=== PATIENT | female | born 1985 | race Asian ===

== ENCOUNTER 2018-04-22 07:23 | Emergency (ER) | payer OTHER ==
[~2018-04-22] VITALS: Ht 152.4 cm; Wt 55.3 kg
[~2018-04-22 07:23] MED LIST: DOCU-131 PO; IBUP-1223 PO; OXYC-302 PO; PREN1TAB60 PO
[2018-04-22 07:25] VITALS: BP 130/81
[2018-04-22 08:22] LABS: BASOPHILS # (AUTO) 0.04 x10^3/uL (0-0.1); BASOPHILS % (AUTO) 0 % (0-1); EOSINOPHILS # (AUTO) 0.13 x10^3/uL (0-0.4); EOSINOPHILS % (AUTO) 1 % (1-7); LYMPHOCYTES # (AUTO) 2.28 x10^3/uL (1-3.4); LYMPHOCYTES % (AUTO) 15 % (22-44); MD NO; MEAN CORPUSCULAR HEMOGLOBIN 31.1 pg (27.0-34.8); MEAN CORPUSCULAR VOLUME 91.3 fL (80-100); MEAN PLATELET VOLUME 8.2 fL (7.4-10.4); MONOCYTES # (AUTO) 0.84 x10^3/uL (0.2-0.8); MONOCYTES % (AUTO) 6 % (2-9); NEUTROPHILS # (AUTO) 11.87 x10^3/uL (1.8-6.8); NEUTROPHILS % (AUTO) 78 % (42-75); PLATELET COUNT 232 x10^3/uL (130-400); RED BLOOD COUNT 3.92 x10^6/uL (3.82-5.3)
[2018-04-22 08:22] LABS: CULTURE INDICATED? YES; MICROSCOPIC INDICATED
[2018-04-22 08:27] LABS: ALBUMIN 3.4 g/dL (3.4-5.0); ANION GAP 8 mmol/L (5-15); CALCIUM 8.4 mg/dL (8.5-10.1); CHLORIDE 106 mmol/L (98-107); CREATININE 0.56 mg/dL (0.55-1.02)
== END 2018-04-22 09:49 | disposition home or self-care (01) ==
LOC: ED 08:17
DX: J00 Acute nasopharyngitis [common cold] (principal)
CPT/HCPCS: 36415; 71046; 80048; 81001; 82040; 84702; 85025; 87086; 99285

== ENCOUNTER 2018-11-27 05:59 | Inpatient (IN) | payer OTHER ==
[~2018-11-27] VITALS: Ht 154.9 cm; Wt 60.4 kg
[2018-11-27 06:00] VITALS: BP 123/73
[2018-11-27] MEDS: OXYTOCIN 30U/ 0.9% NaCL 500ML 500 ML IV SCH ×4 (06:01→17:42)
[2018-11-27 06:29] LABS: BASOPHILS # (AUTO) 0.03 x10^3/uL (0-0.1); BASOPHILS % (AUTO) 0 % (0-1); EOSINOPHILS % (AUTO) 1 % (1-7); LYMPHOCYTES # (AUTO) 1.87 x10^3/uL (1-3.4); LYMPHOCYTES % (AUTO) 21 % (22-44); MD NO; MEAN CORPUSCULAR HEMOGLOBIN 32.1 pg (27.0-34.8); MEAN CORPUSCULAR HGB CONC 33.7 g/dL (32.4-35.8); MEAN CORPUSCULAR VOLUME 95.5 fL (80-100); MEAN PLATELET VOLUME 9.1 fL (7.4-10.4); MONOCYTES # (AUTO) 0.81 x10^3/uL (0.2-0.8); MONOCYTES % (AUTO) 9 % (2-9); NEUTROPHILS # (AUTO) 6.05 x10^3/uL (1.8-6.8); NEUTROPHILS % (AUTO) 68 % (42-75); PLATELET COUNT 217 x10^3/uL (130-400); RED CELL DISTRIBUTION WIDTH 13.7 % (9.6-15.2)
[2018-11-27] MEDS ORDERED: LACTATED RINGERS 1,000 ML IVBOLUS ONE (06:30)
[2018-11-27] MEDS ORDERED: METOCLOPRAMIDE 5 MG/ML, 2ML IV ONE (06:30)
[2018-11-27] MEDS ORDERED: SODIUM CITRATE/CITRIC ACID 30 ML UDC PO ONE (06:30)
[2018-11-27] MEDS ORDERED: NEWBORN KIT ONE (06:34)
[2018-11-27] MEDS ORDERED: SODIUM CITRATE/CITRIC ACID 30 ML UDC ONE (06:34)
[2018-11-27] MEDS ORDERED: METOCLOPRAMIDE 5 MG/ML, 2ML ONE (06:34)
[2018-11-27] MEDS ORDERED: CEFAZOLIN 1,000 MG ONE (07:11)
[2018-11-27] MEDS ORDERED: OXYTOCIN 10 UNITS/ML, 1ML ONE (07:11)
[2018-11-27] MEDS ORDERED: HYDROmorphone 2 MG/ML, 1ML ONE (07:11)
[2018-11-27] MEDS ORDERED: ONDANSETRON 2MG/ML, 2ML ONE (07:11)
[2018-11-27] MEDS ORDERED: FENTANYL PF 100 MCG/2ML ONE (07:12)
[2018-11-27] MEDS ORDERED: SODIUM CHLORIDE 0.9% PF 10ML ONE ×2 (07:12)
[2018-11-27] MEDS: LACTATED RINGERS 1,000 ML IV SCH ×11 (07:33→23:42)
[2018-11-27] MEDS ORDERED: DIPH,PERTUSS(ACELL),TET VAC/PF NC IM-VACC PRN (08:00)
[2018-11-27] MEDS ORDERED: morphine SULFATE 10 MG/ML, 1ML IVPush PRN (08:00)
[2018-11-27] MEDS ORDERED: CALCIUM CARBONATE 500 MG TAB.CHEW PO PRN (08:00)
[2018-11-27] MEDS ORDERED: ONDANSETRON 2MG/ML, 2ML IV PRN (08:00)
[2018-11-27] MEDS ORDERED: OXYcodone/APAP 5/325MG TABLET PO PRN (08:00)
[2018-11-27] MEDS ORDERED: RHOGAM FROM BLOOD BANK 1 NOTE EA IM/IV ONE (08:00)
[2018-11-27] MEDS ORDERED: MISOPROSTOL 200 MCG TABLET PR PRN (08:00)
[2018-11-27] MEDS ORDERED: MEASLES,MUMPS&RUBELLA VACC/PF 0.5 ML SQ-VACC PRN (08:00)
[2018-11-27] MEDS ORDERED: EPHEDRINE 50 MG/ML, 1ML ONE (08:30)
[2018-11-27] MEDS ORDERED: OXYTOCIN 30U/ 0.9% NaCL 500ML 500 ML ONE (09:00)
[2018-11-27] MEDS: PRENATAL VIT/IRON/FA 1 EACH TABLET PO SCH (09:00)
[2018-11-27] MEDS ORDERED: OXYcodone 5 MG/5 ML ORAL.SOL UDC ONE (09:40)
[2018-11-27 09:50] VITALS: BP 124/68
[2018-11-27] MEDS ORDERED: OXYcodone 5 MG/5 ML ORAL.SOL UDC PO PRN (10:00)
[2018-11-27] MEDS: KETOROLAC 30 MG/1 ML IV SCH ×2 (12:15→19:07)
[2018-11-27 13:27] VITALS: BP 111/69
[2018-11-27 17:30] VITALS: BP 120/76
[2018-11-27 19:45] VITALS: BP 113/72
[2018-11-27] MEDS: DOCUSATE 100 MG CAPSULE PO PRN (21:10)
[2018-11-27] MEDS: SIMETHICONE 80 MG CHEW TAB PO PRN (21:10)
[2018-11-27] MEDS: OXYcodone IR 5MG TABLET PO PRN (22:27)
[2018-11-28] MEDS: KETOROLAC 30 MG/1 ML IV SCH ×4 (01:05→20:26)
[2018-11-28 02:00] VITALS: BP 108/68
[2018-11-28] MEDS: OXYTOCIN 30U/ 0.9% NaCL 500ML 500 ML IV SCH ×4 (02:01→23:42)
[2018-11-28] MEDS: LACTATED RINGERS 1,000 ML IV SCH ×6 (03:42→23:42)
[2018-11-28 05:00] VITALS: BP 113/74
[2018-11-28] MEDS: OXYcodone IR 5MG TABLET PO PRN ×2 (06:07→18:45)
[2018-11-28 07:00] LABS: BASOPHILS # (AUTO) 0.04 x10^3/uL (0-0.1); BASOPHILS % (AUTO) 0 % (0-1); EOSINOPHILS # (AUTO) 0.12 x10^3/uL (0-0.4); EOSINOPHILS % (AUTO) 1 % (1-7); LYMPHOCYTES # (AUTO) 1.71 x10^3/uL (1-3.4); LYMPHOCYTES % (AUTO) 13 % (22-44); MD NO; MEAN CORPUSCULAR HEMOGLOBIN 31.4 pg (27.0-34.8); MEAN CORPUSCULAR HGB CONC 32.8 g/dL (32.4-35.8); MEAN CORPUSCULAR VOLUME 95.9 fL (80-100); MEAN PLATELET VOLUME 8.5 fL (7.4-10.4); MONOCYTES % (AUTO) 6 % (2-9); NEUTROPHILS % (AUTO) 79 % (42-75); PLATELET COUNT 210 x10^3/uL (130-400); RED BLOOD COUNT 3.57 x10^6/uL (3.82-5.3); RED CELL DISTRIBUTION WIDTH 13.8 % (9.6-15.2)
[2018-11-28] MEDS: PRENATAL VIT/IRON/FA 1 EACH TABLET PO SCH (07:50)
[2018-11-28] MEDS: DOCUSATE 100 MG CAPSULE PO PRN ×2 (07:50→20:26)
[2018-11-28 07:52] VITALS: BP 113/77
[2018-11-28 19:30] VITALS: BP 122/73
[2018-11-29] MEDS: SIMETHICONE 80 MG CHEW TAB PO PRN (03:29)
[2018-11-29] MEDS: KETOROLAC 30 MG/1 ML IV SCH (03:29)
[2018-11-29 07:30] VITALS: BP 122/80
[2018-11-29] MEDS: LACTATED RINGERS 1,000 ML IV SCH ×3 (07:42→23:42)
[2018-11-29] MEDS: PRENATAL VIT/IRON/FA 1 EACH TABLET PO SCH (07:47)
[2018-11-29] MEDS: OXYcodone IR 5MG TABLET PO PRN ×3 (07:47→19:43)
[2018-11-29] MEDS: DOCUSATE 100 MG CAPSULE PO PRN ×2 (07:47→19:44)
[2018-11-29] MEDS: OXYTOCIN 30U/ 0.9% NaCL 500ML 500 ML IV SCH ×2 (09:42→19:42)
[2018-11-29] MEDS: IBUPROFEN 600 MG TABLET PO PRN ×2 (13:48→19:44)
[2018-11-29 21:00] VITALS: BP 127/89
[2018-11-30] MEDS: IBUPROFEN 600 MG TABLET PO PRN ×2 (01:47→09:02)
[2018-11-30] MEDS: OXYcodone IR 5MG TABLET PO PRN ×2 (01:47→09:02)
[2018-11-30] MEDS: OXYTOCIN 30U/ 0.9% NaCL 500ML 500 ML IV SCH (05:42)
[2018-11-30] MEDS ORDERED: OXYC-302 PO (07:30)
[2018-11-30] MEDS ORDERED: IBUP-1222 PO (07:30)
[2018-11-30] MEDS: LACTATED RINGERS 1,000 ML IV SCH (07:42)
[2018-11-30 08:00] VITALS: BP 119/80
[2018-11-30] MEDS: DOCUSATE 100 MG CAPSULE PO PRN (09:02)
[2018-11-30] MEDS: PRENATAL VIT/IRON/FA 1 EACH TABLET PO SCH (09:02)
== END 2018-11-30 12:54 | disposition home or self-care (01) | DRG 785 ==
LOC: LDIP 05:59 → 2NW 11:33
PROVIDERS: ADMIT Obstetrics & Gynecology Gynecology; ATTEND Obstetrics & Gynecology Gynecology
PROC: 10D00Z1 Extraction of Products of Conception, Low, Open Approach (ICD-10-PCS; principal; 2018-11-27)
PROC: 0UB70ZZ Excision of Bilateral Fallopian Tubes, Open Approach (ICD-10-PCS; 2018-11-27)
DX: O34.211 Maternal care for low transverse scar from previous cesarean delivery (principal); Z3A.39 39 weeks gestation of pregnancy; Z37.0 Single live birth; Z30.2 Encounter for sterilization; Z82.3 Family history of stroke; Z82.49 Family history of ischemic heart disease and other diseases of the circulatory system; Z83.3 Family history of diabetes mellitus
CPT/HCPCS: 36415; 82803; 85025; 86850; 86900; 88302; G0378; J0690; J1170; J1885; J2405; J3010; J2590; J2765; J7120

== ENCOUNTER 2018-12-08 13:20 | Inpatient (IN) | payer OTHER ==
[~2018-12-08] VITALS: Ht 154.9 cm; Wt 60.5 kg
[~2018-12-08 13:20] MED LIST changes: +IBUP-1222 PO
[2018-12-08] MEDS ORDERED: LABETALOL 5MG/ML, 20ML IVPush STA (13:43)
[2018-12-08 13:50] VITALS: BP 188/109
[2018-12-08 13:50] LABS: MICROSCOPIC NOT IND
[2018-12-08] MEDS ORDERED: LACTATED RINGERS 1,000 ML IV SCH (14:00)
[2018-12-08 14:01] LABS: CREATININE,URINE RANDOM 46.1 mg/dL
[2018-12-08 14:07] LABS: BASOPHILS # (AUTO) 0.05 x10^3/uL (0-0.1); BASOPHILS % (AUTO) 1 % (0-1); EOSINOPHILS # (AUTO) 0.19 x10^3/uL (0-0.4); EOSINOPHILS % (AUTO) 2 % (1-7); LYMPHOCYTES # (AUTO) 2.17 x10^3/uL (1-3.4); LYMPHOCYTES % (AUTO) 25 % (22-44); MD NO; MEAN CORPUSCULAR HEMOGLOBIN 31.2 pg (27.0-34.8); MEAN CORPUSCULAR VOLUME 94.8 fL (80-100); MEAN PLATELET VOLUME 7.7 fL (7.4-10.4); MONOCYTES # (AUTO) 0.64 x10^3/uL (0.2-0.8); MONOCYTES % (AUTO) 7 % (2-9); NEUTROPHILS # (AUTO) 5.73 x10^3/uL (1.8-6.8); NEUTROPHILS % (AUTO) 65 % (42-75); PLATELET COUNT 344 x10^3/uL (130-400); RED BLOOD COUNT 4.11 x10^6/uL (3.82-5.3); RED CELL DISTRIBUTION WIDTH 13.4 % (9.6-15.2)
[2018-12-08 14:16] LABS: ALANINE AMINOTRANSFERASE 33 U/L (12-78); ANION GAP 6 mmol/L (5-15); CHLORIDE 108 mmol/L (98-107); CREATININE 0.68 mg/dL (0.55-1.02)
[2018-12-08 14:27] LABS: BILIRUBIN, DIRECT < 0.1 mg/dL (0.1-0.2)
[2018-12-08] MEDS ORDERED: MAGNESIUM SULFATE PMX 4GM/100M 100 ML IVPB ONE (14:30)
[2018-12-08 14:40] LABS: ALKALINE PHOSPHATASE 123 U/L (45-117); BILIRUBIN,TOTAL 0.2 mg/dL (0.2-1.0); CALCIUM 8.3 mg/dL (8.5-10.1); TOTAL PROTEIN 7.2 g/dL (6.4-8.2)
[2018-12-08] MEDS ORDERED: MAGNESIUM SULF. PMX 20GM/500ML 500 ML IV ONE ×2 (14:45→22:26)
[2018-12-08] MEDS: MAGNESIUM SULF. PMX 20GM/500ML 500 ML IV PRN ×2 (14:57→22:31)
[2018-12-08] MEDS ORDERED: IBUPROFEN 600 MG TABLET PO PRN (15:00)
[2018-12-08] MEDS ORDERED: LABETALOL 5 MG/ML SYRINGE IVPush ONE ×3 (16:00→17:00)
[2018-12-08] MEDS ORDERED: hydrALAzine 20 MG/ML, 1ML IVPush ONE (16:00)
[2018-12-08] MEDS ORDERED: LABETALOL 5MG/ML, 20ML IVPush ONE (17:00)
[2018-12-08] MEDS ORDERED: hydrALAzine 20 MG/ML, 1ML ONE (18:08)
[2018-12-08] MEDS ORDERED: hydrALAzine 20 MG/ML, 1ML IV ONE (18:30)
[2018-12-08] MEDS ORDERED: IBUPROFEN 600 MG TABLET ONE (21:36)
[2018-12-08] MEDS ORDERED: HYDROcodone/APAP 5/325 TABLET ONE (21:42)
[2018-12-08] MEDS: HYDROcodone/APAP 5/325 TABLET PO PRN (21:43)
[2018-12-09] MEDS ORDERED: ACETAMINOPHEN 325 MG TABLET ONE (05:45)
[2018-12-09] MEDS ORDERED: ACETAMINOPHEN 325 MG TABLET PO PRN (06:00)
[2018-12-09] MEDS ORDERED: DOCUSATE 100 MG CAPSULE ONE (07:40)
[2018-12-09] MEDS: DOCUSATE 100 MG CAPSULE PO PRN (10:03)
[2018-12-09 12:16] VITALS: BP 120/77
[2018-12-09] MEDS ORDERED: MAGNESIUM SULF. PMX 20GM/500ML 500 ML IV PRN (14:23)
[2018-12-09 20:00] VITALS: BP 115/55
[2018-12-10] MEDS ORDERED: DOCUSATE 100 MG CAPSULE ONE ×2 (00:32→08:31)
[2018-12-10] MEDS ORDERED: HYDROcodone/APAP 5/325 TABLET ONE (00:34)
[2018-12-10] MEDS: DOCUSATE 100 MG CAPSULE PO PRN ×2 (00:50→08:33)
[2018-12-10] MEDS: HYDROcodone/APAP 5/325 TABLET PO PRN (00:51)
[2018-12-10 07:26] VITALS: BP 122/69
[2018-12-10] MEDS ORDERED: NIFE30TA2 PO (08:16)
== END 2018-12-10 11:30 | disposition home or self-care (01) | DRG 776 ==
LOC: LDOP 13:20 → LDIP 14:29
PROVIDERS: ADMIT Obstetrics & Gynecology Gynecology; ATTEND Obstetrics & Gynecology Gynecology
DX: O14.95 Unspecified pre-eclampsia, complicating the puerperium (principal); Z82.3 Family history of stroke; Z82.49 Family history of ischemic heart disease and other diseases of the circulatory system; Z83.3 Family history of diabetes mellitus
CPT/HCPCS: 36415; 80053; 81003; 82248; 82570; 83735; 84156; 84550; 85025; G0378; J0360; J3475; J7120

== ENCOUNTER → 2019-04-25 | Outpatient (CLI) | payer OTHER ==
[~2019-04-25] MED LIST changes: +NIFE30TA2 PO
[2019-04-25 12:34] LABS: CHOL/HDL RATIO 4.7; LDL/HDL RATIO 2.7 (0.5-3.0)
== END | disposition home or self-care (01) ==
LOC: LAB 12:01
PROVIDERS: ATTEND Physician Assistant
DX: E78.5 Hyperlipidemia, unspecified (principal)
CPT/HCPCS: 36415; 80061

== ENCOUNTER → 2019-08-22 | Outpatient (CLI) | payer OTHER ==
[2019-08-22 11:21] LABS: CHOL/HDL RATIO 4.3; LDL/HDL RATIO 2.5 (0.5-3.0)
== END | disposition home or self-care (01) ==
LOC: LAB 10:53
PROVIDERS: ATTEND Physician Assistant
DX: E78.5 Hyperlipidemia, unspecified (principal); I10 Essential (primary) hypertension
CPT/HCPCS: 36415; 80061

== ENCOUNTER 2019-10-11 19:11 | Emergency (ER) | payer OTHER ==
[~2019-10-11] VITALS: Ht 152.4 cm; Wt 48.4 kg
[2019-10-11 19:13] VITALS: BP 103/62
[2019-10-11 20:09] LABS: ALBUMIN 3.8 g/dL (3.4-5.0); ANION GAP 5 mmol/L (5-15); CALCIUM 7.8 mg/dL (8.5-10.1); CHLORIDE 107 mmol/L (98-107); CREATININE 0.75 mg/dL (0.55-1.02)
[2019-10-11 20:13] LABS: TROPONIN I < 0.015 ng/mL (0.000-0.045)
[2019-10-11 20:14] LABS: BASOPHILS # (AUTO) 0.06 x10^3/uL (0-0.1); BASOPHILS % (AUTO) 1 % (0-1); EOSINOPHILS # (AUTO) 0.27 x10^3/uL (0-0.4); EOSINOPHILS % (AUTO) 5 % (1-7); LYMPHOCYTES # (AUTO) 1.89 x10^3/uL (1-3.4); LYMPHOCYTES % (AUTO) 38 % (22-44); MD NO; MEAN CORPUSCULAR HEMOGLOBIN 24.5 pg (27.0-34.8); MEAN CORPUSCULAR HGB CONC 31.1 g/dL (32.4-35.8); MEAN CORPUSCULAR VOLUME 78.9 fL (80-100); MEAN PLATELET VOLUME 9.1 fL (7.4-10.4); MONOCYTES # (AUTO) 0.48 x10^3/uL (0.2-0.8); MONOCYTES % (AUTO) 10 % (2-9); NEUTROPHILS # (AUTO) 2.23 x10^3/uL (1.8-6.8); NEUTROPHILS % (AUTO) 45 % (42-75); PLATELET COUNT 281 x10^3/uL (130-400); RED BLOOD COUNT 4.25 x10^6/uL (3.82-5.3); RED CELL DISTRIBUTION WIDTH 14.9 % (9.6-15.2)
== END 2019-10-11 20:49 | disposition home or self-care (01) ==
LOC: ED 20:43
DX: R00.2 Palpitations (principal); F41.1 Generalized anxiety disorder; I10 Essential (primary) hypertension
CPT/HCPCS: 36415; 80048; 82040; 83735; 84443; 84484; 85025; 93005; 99284

== ENCOUNTER 2019-11-01 10:08 | Outpatient (CLI) | payer OTHER ==
[2019-11-01 10:29] LABS: BASOPHILS # (AUTO) 0.05 x10^3/uL (0-0.1); BASOPHILS % (AUTO) 1 % (0-1); EOSINOPHILS # (AUTO) 0.37 x10^3/uL (0-0.4); EOSINOPHILS % (AUTO) 6 % (1-7); LYMPHOCYTES # (AUTO) 2.44 x10^3/uL (1-3.4); LYMPHOCYTES % (AUTO) 37 % (22-44); MD NO; MEAN CORPUSCULAR HGB CONC 31.3 g/dL (32.4-35.8); MEAN CORPUSCULAR VOLUME 76.7 fL (80-100); MEAN PLATELET VOLUME 8.7 fL (7.4-10.4); MONOCYTES # (AUTO) 0.52 x10^3/uL (0.2-0.8); MONOCYTES % (AUTO) 8 % (2-9); NEUTROPHILS # (AUTO) 3.19 x10^3/uL (1.8-6.8); NEUTROPHILS % (AUTO) 49 % (42-75); PLATELET COUNT 293 x10^3/uL (130-400); RED BLOOD COUNT 4.16 x10^6/uL (3.82-5.3); RED CELL DISTRIBUTION WIDTH 14.7 % (9.6-15.2)
[2019-11-01 10:40] LABS: ALBUMIN 3.7 g/dL (3.4-5.0); ANION GAP 7 mmol/L (5-15); CALCIUM 7.8 mg/dL (8.5-10.1); CHLORIDE 108 mmol/L (98-107)
[2019-11-01 10:44] LABS: % IRON SATURATION 7 % (20-55); ALANINE AMINOTRANSFERASE 18 U/L (12-78); ALKALINE PHOSPHATASE 63 U/L (45-117); BILIRUBIN,TOTAL 0.3 mg/dL (0.2-1.0); IRON LEVEL 35 mcg/dL (50-170); TOTAL IRON BINDING CAPACITY 478 mcg/dL (250-450); TOTAL PROTEIN 8.1 g/dL (6.4-8.2); TRANSFERRIN 411 mg/dL (200-360)
== END 2019-11-01 23:59 | disposition home or self-care (01) ==
LOC: LAB 10:08
PROVIDERS: ATTEND Physician Assistant
DX: E74.39 Other disorders of intestinal carbohydrate absorption (principal); E78.5 Hyperlipidemia, unspecified; I10 Essential (primary) hypertension; D64.9 Anemia, unspecified; R42 Dizziness and giddiness; E83.51 Hypocalcemia; R00.2 Palpitations; E87.6 Hypokalemia
CPT/HCPCS: 36415; 80053; 82728; 83036; 83540; 83550; 84466; 85025

== ENCOUNTER → 2019-12-04 | Outpatient (CLI) | payer OTHER ==
[2019-12-04 11:25] LABS: MEAN CORPUSCULAR HEMOGLOBIN 26.5 pg (27.0-34.8); MEAN CORPUSCULAR HGB CONC 32.3 g/dL (32.4-35.8); MEAN CORPUSCULAR VOLUME 82.1 fL (80-100); MEAN PLATELET VOLUME 9.2 fL (7.4-10.4); PLATELET COUNT 247 x10^3/uL (130-400); RED BLOOD COUNT 4.66 x10^6/uL (3.82-5.3); RED CELL DISTRIBUTION WIDTH 23.8 % (9.6-15.2)
[2019-12-04 11:28] LABS: CHLORIDE 109 mmol/L (98-107); CHOLESTEROL, TOTAL 159 mg/dL (140-239)
[2019-12-04 11:34] LABS: ANION GAP 6 mmol/L (5-15); CALCIUM 8.1 mg/dL (8.5-10.1); CREATININE 0.61 mg/dL (0.55-1.02); IRON LEVEL 58 mcg/dL (50-170); TOTAL IRON BINDING CAPACITY 427 mcg/dL (250-450)
[2019-12-04 11:35] LABS: % IRON SATURATION 14 % (20-55); ALANINE AMINOTRANSFERASE 20 U/L (12-78); ALBUMIN 3.9 g/dL (3.4-5.0); ALKALINE PHOSPHATASE 71 U/L (45-117); BILIRUBIN,TOTAL 0.4 mg/dL (0.2-1.0); CHOL/HDL RATIO 3.7; HDL CHOL % 27 % (28-40); HDL CHOLESTEROL (DIRECT) 43 mg/dL (40-60); LDL CHOLESTEROL,CALCULATED 97 mg/dL (54-169); LDL/HDL RATIO 2.3 (0.5-3.0); TOTAL PROTEIN 8.3 g/dL (6.4-8.2); TRIGLYCERIDES 93 mg/dL (50-200); VLDL CHOLESTEROL 19 mg/dL (0-25)
[2019-12-04 11:49] LABS: BASOPHILS # (AUTO) 0.04 x10^3/uL (0-0.1); BASOPHILS % (AUTO) 1 % (0-1); EOSINOPHILS # (AUTO) 0.35 x10^3/uL (0-0.4); EOSINOPHILS % (AUTO) 6 % (1-7); LYMPHOCYTES # (AUTO) 2.28 x10^3/uL (1-3.4); LYMPHOCYTES % (AUTO) 38 % (22-44); MD SCAN; MONOCYTES # (AUTO) 0.34 x10^3/uL (0.2-0.8); MONOCYTES % (AUTO) 6 % (2-9); NEUTROPHILS # (AUTO) 2.94 x10^3/uL (1.8-6.8); NEUTROPHILS % (AUTO) 49 % (42-75)
== END | disposition home or self-care (01) ==
LOC: LAB 11:04
PROVIDERS: ATTEND Physician Assistant
DX: I10 Essential (primary) hypertension (principal); D64.9 Anemia, unspecified; E78.5 Hyperlipidemia, unspecified; R53.83 Other fatigue
CPT/HCPCS: 36415; 80053; 80061; 82728; 83540; 83550; 83970; 84100; 85025

== ENCOUNTER 2020-02-04 11:24 | Outpatient (CLI) | payer OTHER ==
[2020-02-04 11:42] LABS: BASOPHILS # (AUTO) 0.04 x10^3/uL (0-0.1); BASOPHILS % (AUTO) 1 % (0-1); EOSINOPHILS # (AUTO) 0.29 x10^3/uL (0-0.4); EOSINOPHILS % (AUTO) 6 % (1-7); LYMPHOCYTES # (AUTO) 1.83 x10^3/uL (1-3.4); LYMPHOCYTES % (AUTO) 35 % (22-44); MD NO; MEAN CORPUSCULAR HEMOGLOBIN 29.8 pg (27.0-34.8); MEAN CORPUSCULAR HGB CONC 33.2 g/dL (32.4-35.8); MEAN CORPUSCULAR VOLUME 89.7 fL (80-100); MEAN PLATELET VOLUME 8.8 fL (7.4-10.4); MONOCYTES # (AUTO) 0.31 x10^3/uL (0.2-0.8); MONOCYTES % (AUTO) 6 % (2-9); NEUTROPHILS # (AUTO) 2.78 x10^3/uL (1.8-6.8); NEUTROPHILS % (AUTO) 53 % (42-75); PLATELET COUNT 233 x10^3/uL (130-400); RED BLOOD COUNT 4.85 x10^6/uL (3.82-5.3)
[2020-02-04 12:19] LABS: ALANINE AMINOTRANSFERASE 27 U/L (12-78); ANION GAP 5 mmol/L (5-15); CALCIUM 8.5 mg/dL (8.5-10.1); CHLORIDE 107 mmol/L (98-107); CHOLESTEROL, TOTAL 198 mg/dL (140-239); CREATININE 0.65 mg/dL (0.55-1.02)
[2020-02-04 12:29] LABS: ALKALINE PHOSPHATASE 70 U/L (45-117); BILIRUBIN,TOTAL 0.5 mg/dL (0.2-1.0); HDL CHOL % 20 % (28-40); HDL CHOLESTEROL (DIRECT) 40 mg/dL (40-60); LDL CHOLESTEROL,CALCULATED 114 mg/dL (54-169); LDL/HDL RATIO 2.9 (0.5-3.0); TOTAL PROTEIN 8.4 g/dL (6.4-8.2); TRIGLYCERIDES 220 mg/dL (50-200); VLDL CHOLESTEROL 44 mg/dL (0-25)
== END 2020-02-04 23:59 | disposition home or self-care (01) ==
LOC: LAB 11:24
DX: I10 Essential (primary) hypertension (principal); D64.9 Anemia, unspecified; Z82.3 Family history of stroke; Z82.49 Family history of ischemic heart disease and other diseases of the circulatory system
CPT/HCPCS: 36415; 80053; 80061; 82306; 83036; 84443; 85025

== ENCOUNTER 2020-06-07 08:50 | Outpatient (CLI) | payer OTHER ==
[2020-06-07 09:22] LABS: CHOL/HDL RATIO 4.9; LDL/HDL RATIO 2.4 (0.5-3.0)
== END 2020-06-07 23:59 | disposition home or self-care (01) ==
LOC: LAB 08:50
DX: E78.5 Hyperlipidemia, unspecified (principal)
CPT/HCPCS: 36415; 80061

== ENCOUNTER → 2020-09-20 | Outpatient (CLI) | payer OTHER ==
[2020-09-20 10:19] LABS: ALANINE AMINOTRANSFERASE 50 U/L (12-78); ALBUMIN 4.3 g/dL (3.4-5.0); ANION GAP 4 mmol/L (5-15); CALCIUM 8.7 mg/dL (8.5-10.1); CHLORIDE 106 mmol/L (98-107); CHOLESTEROL, TOTAL 165 mg/dL (140-239); CREATININE 0.73 mg/dL (0.55-1.02)
[2020-09-20 10:21] LABS: ALKALINE PHOSPHATASE 52 U/L (45-117); BILIRUBIN,TOTAL 0.4 mg/dL (0.2-1.0); CHOL/HDL RATIO 3.2; HDL CHOL % 32 % (28-40); HDL CHOLESTEROL (DIRECT) 52 mg/dL (40-60); LDL CHOLESTEROL,CALCULATED 89 mg/dL (54-169); LDL/HDL RATIO 1.7 (0.5-3.0); TOTAL PROTEIN 8.4 g/dL (6.4-8.2); TRIGLYCERIDES 121 mg/dL (50-200); VLDL CHOLESTEROL 24 mg/dL (0-25)
== END | disposition home or self-care (01) ==
LOC: LAB 09:50
DX: I10 Essential (primary) hypertension (principal); E78.5 Hyperlipidemia, unspecified
CPT/HCPCS: 36415; 80053; 80061

== ENCOUNTER → 2021-01-28 | Outpatient (CLI) | payer OTHER ==
[~2021-01-28] MED LIST changes: -OXYC-302 PO; +OXYC1TAB14 PO
[2021-01-28 09:23] LABS: BASOPHILS % (AUTO) 1 % (0-1); EOSINOPHILS % (AUTO) 6 % (1-7); LYMPHOCYTES % (AUTO) 37 % (22-44); MEAN CORPUSCULAR HEMOGLOBIN 29.8 pg (27.0-34.8); MEAN CORPUSCULAR HGB CONC 33.2 g/dL (32.4-35.8); MONOCYTES % (AUTO) 7 % (2-9); NEUTROPHILS % (AUTO) 49 % (42-75); PLATELET COUNT 264 x10^3/uL (130-400); RED BLOOD COUNT 4.48 x10^6/uL (3.82-5.3)
[2021-01-28 09:29] LABS: MD NO
[2021-01-28 09:32] LABS: ALANINE AMINOTRANSFERASE 26 U/L (12-78); ALBUMIN 4.5 g/dL (3.4-5.0); ANION GAP 5 mmol/L (5-15); CALCIUM 8.7 mg/dL (8.5-10.1); CHLORIDE 106 mmol/L (98-107); CHOLESTEROL, TOTAL 243 mg/dL (140-239); CREATININE 0.59 mg/dL (0.55-1.02)
[2021-01-28 09:42] LABS: ALKALINE PHOSPHATASE 81 U/L (45-117); BILIRUBIN,TOTAL 0.4 mg/dL (0.2-1.0); CHOL/HDL RATIO 5.4; HDL CHOL % 19 % (28-40); HDL CHOLESTEROL (DIRECT) 45 mg/dL (40-60); LDL CHOLESTEROL,CALCULATED 144 mg/dL (54-169); LDL/HDL RATIO 3.2 (0.5-3.0); TOTAL PROTEIN 9.1 g/dL (6.4-8.2); TRIGLYCERIDES 272 mg/dL (50-200); VLDL CHOLESTEROL 54 mg/dL (0-25)
== END | disposition home or self-care (01) ==
LOC: LAB 09:04
DX: Z00.00 Encounter for general adult medical examination without abnormal findings (principal); E78.5 Hyperlipidemia, unspecified; E55.9 Vitamin D deficiency, unspecified; Z82.49 Family history of ischemic heart disease and other diseases of the circulatory system; D64.9 Anemia, unspecified; R73.02 Impaired glucose tolerance (oral)
CPT/HCPCS: 36415; 80053; 80061; 82306; 83036; 84443; 85025

== ENCOUNTER → 2021-05-06 | Outpatient (CLI) | payer OTHER ==
[2021-05-06 12:26] LABS: ALANINE AMINOTRANSFERASE 35 U/L (12-78); ALBUMIN 4.1 g/dL (3.4-5.0); ANION GAP 4 mmol/L (5-15); CALCIUM 8.3 mg/dL (8.5-10.1); CHLORIDE 104 mmol/L (98-107); CHOLESTEROL, TOTAL 120 mg/dL (140-239); CREATININE 0.56 mg/dL (0.55-1.02); TRIGLYCERIDES 168 mg/dL (50-200); VLDL CHOLESTEROL 34 mg/dL (0-25)
[2021-05-06 12:28] LABS: ALKALINE PHOSPHATASE 73 U/L (45-117); BILIRUBIN,TOTAL 0.4 mg/dL (0.2-1.0); CHOL/HDL RATIO 3.1; HDL CHOL % 33 % (28-40); HDL CHOLESTEROL (DIRECT) 39 mg/dL (40-60); LDL CHOLESTEROL,CALCULATED 47 mg/dL (54-169); LDL/HDL RATIO 1.2 (0.5-3.0); TOTAL PROTEIN 8.1 g/dL (6.4-8.2)
== END | disposition home or self-care (01) ==
LOC: LAB 11:55
DX: I10 Essential (primary) hypertension (principal); E78.5 Hyperlipidemia, unspecified; Z82.49 Family history of ischemic heart disease and other diseases of the circulatory system; Z82.3 Family history of stroke
CPT/HCPCS: 36415; 80053; 80061

== ENCOUNTER 2021-06-13 07:30 | Outpatient (CLI) | payer OTHER ==
[~2021-06-13 07:30] MED LIST changes: +OXYC1TAB12 PO; -OXYC1TAB14 PO
[2021-06-13 08:14] LABS: ANION GAP 7 mmol/L (5-15); CALCIUM 8.9 mg/dL (8.5-10.1); CHLORIDE 105 mmol/L (98-107); CREATININE 0.49 mg/dL (0.55-1.02)
== END 2021-06-13 23:59 | disposition home or self-care (01) ==
LOC: LAB 07:30
DX: Z22.7 Latent tuberculosis (principal); E87.6 Hypokalemia
CPT/HCPCS: 36415; 71045; 80048